=== PATIENT | male | born 1940 | race Caucasian/White ===

== ENCOUNTER 2018-10-09 09:58 | Day surgery (SDC) | payer MEDICARE, OTHER ==
[2018-10-09] MEDS: Polymyxin B/Trimethoprim 10 ML Bottle EYERT SCH ×4 (10:15→12:00)
[2018-10-09] MEDS: Brimonidine 0.2% Ophth Soln 5 ML Bottle EYERT SCH ×4 (10:20→12:00)
[2018-10-09] MEDS: Phenylephrine 2.5% Ophth Soln 2 ML Bot EYERT SCH ×6 (10:25→11:43)
--- NOTE | 2018-10-09 10:27 | PCM.PREANE ---
Preanesthetic Assessment - Anesthesia/Transfusion/Family Hx Anesthesia History: Prior Anesthesia Without Reaction Family History of Anesthesia Reaction: No Transfusion History: No Prior Transfusion(s) Intubation History: Unknown - Review of Systems General: No Symptoms Pulmonary: No Symptoms Cardiovascular: No Symptoms Gastrointestinal: No Symptoms Neurological: No Symptoms Other: Reports: None - Physical Assessment NPO Status Date: 10/08/18 NPO Status Time: 22:00 Pulse: 64 O2 Sat by Pulse Oximetry: 98 Respiratory Rate: 16 Blood Pressure: 133/59 ASA Class: 2 Mental Status: Alert & Oriented x3 Airway Class: Mallampati = 2 Dentition: Reports: Dentures (upper/lower) Thyro-Mental Finger Breadths: 2 Mouth Opening Finger Breadths: 3 ROM/Head Extension: Full Lungs: Clear to Auscultation, Normal Respiratory Effort Cardiovascular: Regular Rate, Regular Rhythm - Allergies Allergies/Adverse Reactions: Allergies Allergy/AdvReac Type Severity Reaction Status Date / Time No Known Allergies Allergy Verified 10/08/18 14:02 - Anesthesia Plan Beta Ramsey: Metoprolol Med Last Dose Date: 10/08/18 Med Last Dose Time: 22:00 - Acknowledgements Anesthesia Type Planned: MAC Pt an Appropriate Candidate for the Planned Anesthesia: Yes Alternatives and Risks of Anesthesia Discussed w Pt/Guardian: Yes Pt/Guardian Understands and Agrees with Anesthesia Plan: Yes PreAnesthesia Questionnaire HEENT History: Reports: Cataract, Impaired Vision, Other (See Below) Other HEENT History: wears glasses, has hearing aids, dentures Cardiovascular History: Reports: Afib, CAD, High Cholesterol, Hypertension Respiratory History: Reports: Other (See Below) Other Respiratory History: lung nodule, had acute respiratory insufficiency post op-pt states he is unaware of this Gastrointestinal History: Reports: None Genitourinary History: Reports: None PROSPECTING OBSERVER History: Reports: None Musculoskeletal History: Reports: Osteoarthritis, Other (See Below) Other Musculoskeletal History: left knee sidhu's cyst Neurological History: Reports: Other (See Below) Other Neuro History: cerebrovascular disease, pt states unaware of this Psychiatric History: Reports: Anxiety, Depression, Other (See Below) Other Psychiatric History: insomnia Endocrine/Metabolic History: Reports: Diabetes, Type I (pt states checks BS twice a week) Hematologic History: Reports: None Immunologic History: Reports: None Oncologic (Cancer) History: Reports: None Dermatologic History: Reports: Other (See Below) Other Dermatologic History: skin neoplasm, dermatitis - Past Surgical History Head Surgeries/Procedures: Reports: None HEENT Surgical History: Reports: None, Cataract Surgery Cardiovascular Surgical History: Reports: Coronary Artery Bypass Respiratory Surgical History: Reports: None GI Surgical History: Reports: Colonoscopy, Hernia, Inguinal Male Surgical History: Reports: Vasectomy Endocrine Surgical History: Reports: None Neurological Surgical History: Reports: None Musculoskeletal Surgical History: Reports: None, Knee Replacement ((L)) Oncologic Surgical History: Reports: None Dermatological Surgical History: Reports: None - SUBSTANCE USE Smoking Status *Q: Current Some Day Smoker (pt states very light smoker) - HOME MEDS Home Medications: Home Meds Fenofibrate Nanocrystallized [Tricor] 48 mg PO DAILY 04/27/18 [History] Insulin Glarg,Human.Rec.Analog [Lantus Solostar] 60 units SQ BEDTIME 04/27/18 [ History] Lisinopril 5 mg PO DAILY 04/27/18 [History] Metoprolol Succinate [Toprol Xl] 25 mg PO DAILY 04/27/18 [History] Metoprolol Succinate [Toprol Xl] 50 mg PO DAILY 04/27/18 [History] Multivitamin [Zoo Chews] 1 tab PO DAILY 04/27/18 [History] Pravastatin Sodium 80 mg PO BEDTIME 04/27/18 [History] Sertraline HCl 100 mg PO DAILY 04/27/18 [History] Zolpidem Tartrate 10 mg PO BEDTIME PRN 04/27/18 [History] sitaGLIPtin Phos/Metformin HCl [Janumet 50-1,000 MG] 1 tab PO BID 04/27/18 [ History] Aspirin [Paulding Aspirin] 81 mg PO DAILY 10/08/18 [History] Dextran 70/Hypromellose [Artificial Tears] 1 dose EYEBOTH BID PRN 10/08/18 [ History] Venlafaxine HCl [Venlafaxine ER] 75 mg PO DAILY 10/08/18 [History] - CURRENT (IN HOUSE) MEDS Current Meds: Current Medications Brimonidine Tartrate (Alphagan 0.2% Ophth Soln) 0 ml EYERT ASDIRECTED JESSY Stop: 10/09/18 23:00 Last Admin: 10/09/18 10:20 Dose: 1 drop Cefuroxime Sodium (Zinacef) 0 mg EYERT ASDIRECTED JESSY Stop: 10/09/18 23:00 Lidocaine HCl (Xylocaine-Mpf 1%) 0 ml INJECT ASDIRECTED JESSY Stop: 10/09/18 23:00 Phenylephrine HCl (Mynor-Synephrine 2.5% Ophth Soln) 0 ml EYERT ASDIRECTED JESSY Stop: 10/09/18 23:00 Pilocarpine HCl (Pilocar 4% Ophth Soln) 0 ml EYERT ASDIRECTED JESSY Stop: 10/09/18 23:00 Polymyxin/Trimethoprim Sulfate (Polytrim Ophth Soln) 0 ml EYERT ASDIRECTED JESSY Stop: 10/09/18 23:00 Last Admin: 10/09/18 10:15 Dose: 1 drop Tetracaine HCl (Tetracaine 0.5% Steri-Unit Lashanda) 0 ml EYERT ASDIRECTED JESSY Stop: 10/09/18 23:00 Tropicamide (Mydriacyl 1% Ophth Soln) 0 ml EYERT ASDIRECTED JESSY Stop: 10/09/18 23:00
[2018-10-09] MEDS: Tropicamide 1% Ophth Soln 15 ML Bottle EYERT SCH ×4 (10:30→11:10)
[2018-10-09] MEDS: Tetracaine HCl/PF 0.5% 4 ML Bottle EYERT SCH ×5 (11:18→11:49)
[2018-10-09] MEDS: Lidocaine 1% PF 2 ML SDV INJECT SCH ×2 (11:30→11:48)
[2018-10-09] MEDS: Cefuroxime 10 MG/ML SYRINGE EYERT SCH ×2 (11:30→11:59)
[2018-10-09] MEDS: Pilocarpine 4% Ophth Soln 15 ML Bot EYERT SCH ×2 (11:31→12:00)
--- NOTE | 2018-10-09 12:05 | PCM48HPAN ---
Post Anesthesia Note - EVALUATION WITHIN 48HRS OF ANESTHETIC Vital Signs in Normal Range: Yes Patient Participated in Evaluation: Yes Respiratory Function Stable: Yes Airway Patent: Yes Cardiovascular Function Stable: Yes Hydration Status Stable: Yes Pain Control Satisfactory: Yes Nausea and Vomiting Control Satisfactory: Yes Mental Status Recovered: Yes Pulse Rate: 62 SaO2: 98 Resp Rate: 20 Blood Pressure: 124/62
[2018-10-09 12:21] VITALS: BP 123/64
== END 2018-10-09 12:16 | disposition home or self-care (01) ==
LOC: JD.SDS 09:58
PROVIDERS: ATTEND Ophthalmology
DX: E10.36 Type 1 diabetes mellitus with diabetic cataract (principal); H25.811 Combined forms of age-related cataract, right eye; I10 Essential (primary) hypertension; F17.200 Nicotine dependence, unspecified, uncomplicated; F32.9 Major depressive disorder, single episode, unspecified; E78.00 Pure hypercholesterolemia, unspecified; Z96.1 Presence of intraocular lens; Z98.42 Cataract extraction status, left eye; Z79.4 Long term (current) use of insulin; Z79.82 Long term (current) use of aspirin; Z79.899 Other long term (current) drug therapy
CPT/HCPCS: 66984; A9270; J0697; J2001; C1780